=== PATIENT | male | born 2000 | race Caucasian/White ===

== ENCOUNTER 2019-08-13 20:54 | Emergency (ER) | payer OTHER ==
[~2019-08-13] VITALS: Ht 175.3 cm; Wt 65.9 kg
[2019-08-13] MEDS ORDERED: NON-325T5 PO (20:59)
[2019-08-13] MEDS ORDERED: PERCOCET 5MG/325MG TAB PO ONE (21:15)
--- NOTE | 2019-08-13 22:13 | REPVR ---
PROCEDURE INFORMATION: Exam: CT Chest Without Contrast Exam date and time: 08/13/2019 9:24 PM Age: 19 years old Clinical indication: Injury or trauma; Fall; Initial encounter; Blunt trauma (contusions or hematomas); Additional info: Trauma, left rib pain TECHNIQUE: Imaging protocol: Computed tomography of the chest without contrast. 3D rendering: MIP and/or 3D reconstructed images were created by the technologist. Radiation optimization: All CT scans at this facility use at least one of these dose optimization techniques: automated exposure control; mA and/or kV adjustment per patient size (includes targeted exams where dose is matched to clinical indication); or iterative reconstruction. COMPARISON: No relevant prior studies available. FINDINGS: Lungs: Unremarkable. No consolidation. No masses. Pleural space: Unremarkable. No pneumothorax. No pleural effusion. Heart: Unremarkable. No cardiomegaly. No pericardial effusion. Aorta: Unremarkable. No aortic aneurysm. Lymph nodes: Unremarkable. No enlarged lymph nodes. Bones/joints: Unremarkable. No acute fracture. Soft tissues: Unremarkable. IMPRESSION: No acute findings. Electronically signed by: Gamal Birmingham On 08/13/2019 22:12:50 PM
[2019-08-13 22:30] VITALS: BP 135/84
== END 2019-08-13 22:36 | disposition home or self-care (01) ==
LOC: M ED 20:54
DX: S20.219A Contusion of unspecified front wall of thorax, initial encounter (principal); W01.0XXA Fall on same level from slipping, tripping and stumbling without subsequent striking against object, initial encounter; Y92.9 Unspecified place or not applicable

== ENCOUNTER 2020-03-22 03:23 | Emergency (ER) | payer OTHER ==
[~2020-03-22] VITALS: Ht 175.3 cm; Wt 65.9 kg
[~2020-03-22 03:23] MED LIST: NON-325T5 PO
[2020-03-22] MEDS ORDERED: propofoL 200 MG/20 ML VIAL As Ordered ONE (04:31)
[2020-03-22 05:48] VITALS: BP 136/68
--- NOTE | 2020-03-22 05:55 | REPVR ---
PROCEDURE INFORMATION: Exam: XR Left Elbow Exam date and time: 03/22/2020 4:57 AM Age: 19 years old Clinical indication: Injury or trauma; Fall; Initial encounter; Dislocation; Severity not specified; Elbow; Left; Additional info: Fell on left arm TECHNIQUE: Imaging protocol: XR Left elbow. Views: 3 or more views. COMPARISON: No relevant prior studies available. FINDINGS: Bones/joints: Posterior dislocation of the elbow. No definite fracture. Soft tissues: Normal. IMPRESSION: Posterior dislocation of the left elbow. Electronically signed by: Soren Hogan On 03/22/2020 05:56:16 AM
--- NOTE | 2020-03-22 05:55 | REPVR ---
PROCEDURE INFORMATION: Exam: XR Left Elbow Exam date and time: 03/22/2020 4:57 AM Age: 19 years old Clinical indication: Injury or trauma; Fall; Follow-up exam; Dislocation; Severity not specified; Elbow; Left; Additional info: Post redox TECHNIQUE: Imaging protocol: XR Left elbow. Views: 3 or more views. COMPARISON: CR Elbow, complete LEFT 03/22/2020 3:45 AM FINDINGS: Bones/joints: Anatomic reduction of previous dislocation. Suboptimal projection with no definite fracture identified. Soft tissues: Normal. IMPRESSION: Suboptimal projection, however, there is anatomic reduction of the previously dislocated left elbow since a study done earlier in the day. Electronically signed by: Soren Hogan On 03/22/2020 05:55:11 AM
== END 2020-03-22 05:49 | disposition home or self-care (01) ==
LOC: M ED 03:23
DX: S53.125A Posterior dislocation of left ulnohumeral joint, initial encounter (principal); W01.0XXA Fall on same level from slipping, tripping and stumbling without subsequent striking against object, initial encounter; Y92.9 Unspecified place or not applicable